=== PATIENT | female | born 1975 | race Caucasian/White ===

== ENCOUNTER → 2018-11-27 | Outpatient (CLI) | payer OTHER ==
--- NOTE | 2018-11-28 11:05 | RAD ---
DATE: 11/27/2018 EXAM: MAMMO YAZ SCREENING BILATERAL HISTORY: Routine screening COMPARISON: None available This study was interpreted with the benefit of Computerized Aided Detection (CAD). Breast Density: HETERO The breast parenchyma is heterogenously dense, which could reduce sensitivity of mammography. Breast parenchyma level C. FINDINGS: 2-D and 3-D tomosynthesis imaging was performed in CC and MLO projections. There are numerous tiny smooth nodules in both breasts. No spiculated mass or architectural distortion is evident. There are benign type calcifications. No suspicious microcalcifications are evident. IMPRESSION: Numerous tiny smooth nodules in both breasts. This pattern is most commonly due to fibrocystic disease. Bilateral breast ultrasound is suggested for further evaluation BI-RADS CATEGORY: 0 INCOMPLETE: NEEDS ADDITIONAL IMAGING EVALUATION AND/OR PRIOR MAMMOGRAMS FOR COMPARISON. RECOMMENDED FOLLOW-UP: ADD ADDITIONAL IMAGING PQRS compliance statement: Patient information was entered into a reminder system with a target due date for the next mammogram. Mammography is a sensitive method for finding small breast cancers, but it does not detect them all and is not a substitute for careful clinical examination. A negative mammogram does not negate a clinically suspicious finding and should not result in delay in biopsying a clinically suspicious abnormality. "Our facility is accredited by the [employer] Mammography Program."
== END | disposition home or self-care (01) ==
LOC: MAMMO 13:26
PROVIDERS: ATTEND Registered Nurse
DX: Z12.31 Encounter for screening mammogram for malignant neoplasm of breast (principal); N60.12 Diffuse cystic mastopathy of left breast; N60.11 Diffuse cystic mastopathy of right breast
CPT/HCPCS: 77063; 77067

== ENCOUNTER → 2018-12-14 | Outpatient (CLI) | payer OTHER ==
--- NOTE | 2018-12-14 18:13 | RAD ---
Examination: BREAST BILATERAL History: Abnormal mammogram Comparison/Correlation: 11/27/2018 screen mammographic exam Findings: Bilateral breast ultrasound exam was performed. Numerous cysts and small masses are present bilaterally. On the right, the largest of these is 5 cm from the nipple measuring up to 0.6 cm in diameter at the 5:00 region. On the left at the 12:00 region, the largest of these measures up to 0.7 cm diameter at the 5:00 region 4 cm from the nipple. Masses are well-circumscribed without suspicious features. Impression: BI-RADS Category 3-probably benign. Six-month follow-up mammography is recommended to assess stability of the numerous masses and cysts present.
== END | disposition home or self-care (01) ==
LOC: US 14:18
PROVIDERS: ATTEND Registered Nurse
DX: N60.02 Solitary cyst of left breast (principal); N60.01 Solitary cyst of right breast; N63.14 Unspecified lump in the right breast, lower inner quadrant; N63.21 Unspecified lump in the left breast, upper outer quadrant
CPT/HCPCS: 76641